=== PATIENT | female | born 1975 | race Caucasian/White ===

== ENCOUNTER 2020-08-15 21:39 | Observation (INO) ==
[2020-08-15] MEDS ORDERED: MORPHINE 4 MG/1 ML VIAL IV ONE (22:19)
[2020-08-15] MEDS ORDERED: SODIUM CHLORIDE 0.9% 1,000 ML IV STA (22:19)
[2020-08-15] MEDS ORDERED: ONDANSETRON 4 MG/2 ML VIAL IV ONE (22:19)
[2020-08-15 22:35] LABS: Basophils # 0.1 10*3/uL (0.0-0.2); Basophils % 0.7 % (0.0-0.8); Eosinophils # 0.2 10*3/uL (0.0-0.87); Eosinophils % 2.5 % (0.00-10.9); Hematocrit 45.1 VOL% (35.7-47.0); Hemoglobin 14.9 GM/DL (12.0-16.0); Immature Granulocytes % 0.3 %; Immature Granulocytes Absolute 0.02 #; Lymphocytes # 2.6 10*3/uL (1.4-4.0); Lymphocytes % 37.9 % (21.3-54.2); Mean Corpuscular Volume 96.6 FL (87-102); Monocytes % 11.5 % (1.7-12.7); Neutrophils % 47.1 % (38.7-73.9); Platelet Count 410 T/CUMM (130-400); Red Blood Count 4.67 MC/CUMM (3.8-5.5); Red Cell Distribution Width 12.1 % (9.3-17.3); White Blood Count 6.8 T/CUMM (4-12)
[2020-08-15 22:46] LABS: Bacteria,Urine Occasional /HPF (Few); Bilirubin,Urine Negative (Negative); Blood, Urine Negative (Negative); Glucose,Urine (UA) Negative (Negative); Ketones,Urine Negative (Negative); Mucus,Urine Occasional /LPF (Occasional); Nitrite,Urine Negative (Negative); PT Patient Result 10.8 SECS (9.8-11.9); Protein,Urine Negative; RBC,Urine 6 /HPF (0-4); Squamous Epithelial Cell,Urine Occasional /HPF (0-10); Urine Appearance CLEAR (Clear); Urine Color Yellow (Yellow); Urine Specific Gravity 1.019 (1.001-1.035); WBC,Urine <1 /HPF (0-6)
[2020-08-15 22:47] LABS: Alanine Aminotransferase 49 U/L (13-56); Albumin 4.2 G/DL (3.4-5.0); Alkaline Phosphatase 79 U/L (45-117); Aspartate Amino Transferase 30 U/L (0-37); Bilirubin,Total < 0.39 MG/DL (0.2-1.0); Blood Urea Nitrogen 8 MG/DL (7-18); Calcium 9.2 MG/DL (8.5-10.1); Carbon Dioxide 28 MMOL/L (21-32); Estimated Glom Filtration Rate 88 ML/MIN; Glucose 103 MG/DL (74-106); Osmolality,Calculated 274.5 MOS/KG (273-304); Potassium 3.5 MMOL/L (3.5-5.1); Sodium 139 MMOL/L (136-145); Total Protein 7.9 G/DL (6.4-8.2)
[2020-08-16] MEDS ORDERED: MORPHINE 4 MG/1 ML VIAL IV ONE (00:04)
[2020-08-16] MEDS ORDERED: ONDANSETRON 4 MG/2 ML VIAL IV ONE (00:04)
[2020-08-16] MEDS ORDERED: PIPERACILLIN/TAZOBACTAM 3,375 MG in SODIUM CHLORIDE 0.9% 100 ML IV STA (00:04)
[2020-08-16] MEDS ORDERED: BISACODYL 5 MG TABLET PO PRN (00:11)
[2020-08-16] MEDS ORDERED: ONDANSETRON 4 MG/2 ML VIAL IV PRN (00:11)
[2020-08-16] MEDS ORDERED: BISACODYL 10 MG SUPP RECTAL PRN (00:11)
[2020-08-16] MEDS ORDERED: ACETAMINOPHEN 325 MG TABLET PO PRN (00:11)
[2020-08-16] MEDS ORDERED: MORPHINE 4 MG/1 ML VIAL IV PRN (00:11)
[2020-08-16] MEDS ORDERED: HYDROmorphone 2 MG/1 ML VIAL IV PRN (00:11)
[2020-08-16] MEDS: LACTATED RINGERS 1,000 ML IV SCH ×3 (02:02→13:26)
[2020-08-16 02:17] LABS: Platelet Estimate Adequate
[2020-08-16 05:04] LABS: Basophils % 0.6 % (0.0-0.8); Eosinophils # 0.1 10*3/uL (0.0-0.87); Eosinophils % 1.4 % (0.00-10.9); Hematocrit 39.9 VOL% (35.7-47.0); Immature Granulocytes % 0.3 %; Immature Granulocytes Absolute 0.02 #; Lymphocytes # 1.5 10*3/uL (1.4-4.0); Lymphocytes % 24.1 % (21.3-54.2); Mean Corpuscular HGB Conc 32.6 GM/DL (32-36); Mean Corpuscular Volume 97.1 FL (87-102); Mean Platelet Volume 10.2 FL (9.6-12.0); Monocytes % 11.8 % (1.7-12.7); Neutrophils % 61.8 % (38.7-73.9); Platelet Count 337 T/CUMM (130-400); Red Blood Count 4.11 MC/CUMM (3.8-5.5); Red Cell Distribution Width 12.1 % (9.3-17.3); White Blood Count 6.4 T/CUMM (4-12)
[2020-08-16 05:27] LABS: Albumin 3.2 G/DL (3.4-5.0); Bilirubin,Total 0.9 MG/DL (0.2-1.0); Calcium 8.6 MG/DL (8.5-10.1); Osmolality,Calculated 280.1 MOS/KG (273-304); Potassium 4.1 MMOL/L (3.5-5.1)
[2020-08-16] MEDS: PIPERACILLIN/TAZOBACTAM 3,375 MG in SODIUM CHLORIDE 0.9% 100 ML IV SCH ×2 (08:20→17:43)
[2020-08-16] MEDS: DOCUSATE SODIUM 100 MG CAPSULE PO SCH ×2 (08:32→20:15)
[2020-08-16] MEDS: PANTOPRAZOLE 40 MG VIAL IV SCH (10:29)
[2020-08-16] MEDS ORDERED: ENOXAPARIN 40 MG/0.4 ML SYRINGE SUBCUT SCH (13:00)
[2020-08-17] MEDS: PIPERACILLIN/TAZOBACTAM 3,375 MG in SODIUM CHLORIDE 0.9% 100 ML IV SCH ×2 (00:14→08:11)
[2020-08-17] MEDS: LACTATED RINGERS 1,000 ML IV SCH ×3 (04:20→10:18)
[2020-08-17] MEDS ORDERED: INDOCYANINE GREEN 25 MG VIAL IV ONE (05:00)
[2020-08-17] MEDS ORDERED: LIDOCAINE 1%/EPI INJ 20 ML VIAL ONE (06:30)
[2020-08-17] MEDS ORDERED: BUPIVACAINE MPF 0.25% 30 ML VIAL ONE (06:30)
[2020-08-17] MEDS ORDERED: DIAZEPAM 5 MG TABLET PO ONE (06:45)
[2020-08-17] MEDS ORDERED: SCOPOLAMINE 1.5 MG PATCH TRANSDERM ONE (06:45)
[2020-08-17] MEDS ORDERED: GABAPENTIN 400 MG CAPSULE PO ONE (06:45)
[2020-08-17] MEDS ORDERED: ROCURONIUM 50 MG/5 ML VIAL IV ONE (08:17)
[2020-08-17] MEDS ORDERED: MIDAZOLAM 2 MG/2 ML VIAL ONE (08:17)
[2020-08-17] MEDS ORDERED: fentaNYL 100 MCG/2 ML VIAL ONE ×2 (08:17→08:57)
[2020-08-17] MEDS ORDERED: LIDOCAINE 2% 5 ML VIAL ONE (08:17)
[2020-08-17] MEDS ORDERED: propofoL 200 MG/20 ML VIAL IV ONE (08:17)
[2020-08-17] MEDS ORDERED: DEXAMETHASONE 4 MG/1 ML VIAL ONE (08:41)
[2020-08-17] MEDS ORDERED: ONDANSETRON 4 MG/2 ML VIAL ONE (08:41)
[2020-08-17] MEDS ORDERED: KETOROLAC 30 MG/1 ML VIAL ONE (08:41)
[2020-08-17] MEDS ORDERED: SEVOFLURANE 1 UNIT/15 MINUTE INH ONE (08:41)
[2020-08-17] MEDS ORDERED: PROMETHAZINE 25 MG/1 ML VIAL ONE (08:41)
[2020-08-17] MEDS ORDERED: ACETAMINOPHEN INJ 1,000 MG/100 ML VIAL IV ONE (08:59)
[2020-08-17] MEDS ORDERED: TISSUE ADHESIVE 1 EACH APPLICATOR TOP ONE (09:00)
[2020-08-17] MEDS ORDERED: GLYCOPYRROLATE 0.4 MG/2 ML VIAL ONE ×2 (09:22)
[2020-08-17] MEDS ORDERED: NEOSTIGMINE 10 MG/10 ML VIAL ONE ×5 (09:22)
[2020-08-17] MEDS: PANTOPRAZOLE 40 MG VIAL IV SCH (10:18)
[2020-08-17] MEDS: DOCUSATE SODIUM 100 MG CAPSULE PO SCH (10:18)
[2020-08-17 14:29] VITALS: BP 148/89
[2020-08-18] MEDS ORDERED: VERAPAMIL SR 240 MG TABLET PO SCH (09:00)
[2020-08-18] MEDS ORDERED: LOSARTAN 25 MG TABLET PO SCH (09:00)
== END 2020-08-17 14:45 | disposition home or self-care (01) ==
LOC: N.EDINP 21:39 → N.ED 21:39 → N.3E 08-16 01:55
PROVIDERS: ADMIT Surgery; ATTEND Surgery